=== PATIENT | female | born 1990 | race Caucasian/White ===

== ENCOUNTER 2024-09-15 17:51 | Emergency (ER) | payer BC, SELFPAY ==
[2024-09-15 17:52] VITALS: BP 138/82
[2024-09-15 18:31] VITALS: BMI 30.9
[2024-09-15] MEDS: TORADOL 30 MG IV (18:43)
[2024-09-15 18:46] LABS: % Basophils 0.7 % (0-2); % Eosinophils 1.8 % (0-6); % Immature Granulocytes 0.3 % (0-0.5); % Lymphocytes 25.8 % (20.5-51.1); % Neutrophils 63.4 % (42.2-75.2); Absolute Basophils 0.1 10^3/uL (0-0.2); Absolute Eosinophils 0.1 10^3/uL (0-0.7); Absolute Lymphocytes 1.9 10^3/uL (1.2-3.4); Absolute Monocytes 0.6 10^3/uL (0.1-0.6); Absolute Neutrophils 4.6 10^3/uL (1.4-6.5); Hematocrit 42.1 % (37.0-47.0); Hemoglobin 14.2 g/dL (12.0-16.0); Mean Corp Hgb Conc. 33.7 g/dL (33.0-37.0); Mean Corpuscular Hgb 29.3 pg (27.0-31.0); Mean Corpuscular Volume 86.8 fL (81.0-99.0); Mean Platelet Volume 10.6 fL (7.4-10.4); Nucleated Red Blood Cells % 0 %; Platelet Count 223 10^3/uL (130-400); Red Blood Cell Count 4.85 10^6/uL (4.20-5.40); Red Cell Dist. Width 12.1 % (11.5-14.5); White Blood Cell Count 7.3 10^3/uL (4.8-10.8)
--- NOTE | 2024-09-15 18:46 | ED.GENMED ---
History of Present Illness
General
Chief Complaint: Abdominal Pain
Source: patient
Exam Limitations: none
Time Seen by Provider: 09/15/24 18:08
Nursing documentation reviewed up to this point in time: agreed with
History of Present Illness
History of Present Illness:
pt is a 34 y/o F with h/o ovarian cyst in the past
Says that 3 days ago she had a nausea vomiting diarrhea illness that lasted about 12 hours. She vomited and had diarrhea every 30 minutes for about 6 hours. Subsequent to that she has no longer had vomiting and diarrhea but does not really have an
appetite. She had a low-grade temperature during that illness of 99-100. She has not felt feverish since. Patient says that she noticed that after the illness subsided that she started having left lower quadrant pain. Initially the pain was mild
and now it is more significant, constant and hurts worse with bending over and riding in a vehicle. Patient says she could feel the bumps in the car. She has never had a colonoscopy, history of diverticulitis but does have a family history of
diverticulosis. She has had a history of in the remote past. Patient has had an ovarian cyst previously on the right side but says she is not quite sure the pain feels similar. She has an IUD and does not get an menstrual cycle.
Patient did take a test which was negative. She went to urgent care and was sent here for imaging.
Past History
Past History
ED Past Medical History: None
ED Past Surgical History:
Social History
Tobacco: Non-smoker
Alcohol: None
Drug: None
Personal: Single
Employment: Employed
Family History
Family History: Other
Review of Systems
Review of Systems
Allergies reviewed?: Yes
All Other Systems: Not applicable
Phy Exam
Physical Exam
Physical Exam:
GENERAL: Alert , in no apparent distress
EYE: pupils equal and reactive
NECK: Supple
ENT: o/p clr, mmm.
CARDIAC: Regular rate and rhythm .
LUNGS: Clear breath sounds bilaterally, no acute respiratory distress, no wheezes/rales/rhonchi
ABDOMEN: Soft, mild left lower quad tendenress, no r/g, no cvat, normal bowel sounds
NEUROLOGICAL: Alert and oriented, no focal neuro deficits
SKIN: Warm and dry, skin intact.
MUSCULOSKELETAL: No edema, well perfused.
PSYCH: Normal and appropriate interaction.
Course
Orders/Labs/Results
Orders:
Orders
09/15/24 18:32
CT Abd/Pel (IV only)-[facility] only Urgent
Comment:
Reason For Exam: LLQ pain after GI virus 3 days ago
Test Result ONCE
09/15/24 18:36
Complete Blood Count/With Diff Urgent
Comprehensive Metabolic Panel Urgent
HCG, Serum Qualitative Screen Urgent
Lipase Urgent
09/15/24 18:40
Ketorolac [Toradol] 30 mg IV NOW STA
09/15/24 19:49
Urinalysis Reflex To Culture Urgent
Date Specimen was Collected: 09/15/24
Time Specimen was Collected: 19:48
Abnormal Lab Results
09/15/24
18:36
MPV 10.6 H fL
(7.4-10.4)
Alkaline Phosphatase 26 L U/L
(38-126)
09/15/24 18:36
09/15/24 18:36
Vital Signs
Initial and Last Documented VS:
Initial Vital Signs
Temp Pulse Resp BP Pulse Ox
37.3 C 91 16 138/82 100
09/15/24 17:52 09/15/24 17:52 09/15/24 17:52 09/15/24 17:52 09/15/24 17:52
Last Documented Vital Signs
Temp Pulse Resp BP Pulse Ox
37.3 C 91 16 119/87 99
09/15/24 17:52 09/15/24 17:52 09/15/24 17:52 09/15/24 21:06 09/15/24 20:01
MDM/Problems Addressed
Differential Diagnosis Includes:
ovarian cyst, diveriticlutis, colitis
MDM/Problems Addressed:
34 y/o F
h/o previous ovarian cyst
here with LLQ pain after having N/V/D earlier this week
pt says she doesn' thve appetite; bumps in the car are painful today
worse with movement
went to and sent here
no fever/chills, vomitig, diarrhea, vaginal bleeding, urinary syptmoms
on exam she has some tenderness LLQ/L pelvis regoin
no rebound
labs reassuring
ctap shows findings of possible complex cyst in the myometrium vs fibroid in uterus an dd a 3x 4 x3m L ovarian cyst
noted that torsion not r/o on CT but the ovary itself does not appear edematous which with days of symptoms should be the case with torsion
and pt's pain i smuch better after toradol
no divetic
pt feels comfortable going home at this point;
i am very reassured by her exam that this patient does not have torsion; however, US was offered
*Critical Care Note
Total Time (30-74mins, 75-104mins- exclusive of procedures): Not Applicable
ED Attending Note
-
Portions of this chart may have been created with voice recognition software.� Occasional wrong word or��sound alike� substitutions may have occurred due to the inherent limitations of voice recognition software.
Discharge Plan
Departure
Patient Disposition: Home (Routine Discharge)
Date of Disposition: 09/15/24
Time of Disposition: 21:08
Patient with high blood pressure during this ER visit?: No
Condition: Fair
Covid-19: Not Applicable
Discharge Problem:
Ovarian cyst
Instructions: Ovarian Cyst (DC)
Prescriptions:
No Action
Vitamin Tablet
1 tab PO DAILY
oxycodone-acetaminophen 5-325 mg Tablet
2 tab PO Q4HPRN PRN (Reason: severe pain) Qty: 30 0RF
ibuprofen 600 mg Tablet
600 mg PO Q4HPRN PRN (Reason: cramps) Qty: 30 0RF
clopidogrel [Plavix] 75 mg tablet
75 mg PO DAILY Qty: 21 0RF
aspirin 81 mg tablet,chewable
81 mg PO DAILY Qty: 30 0RF
Referrals:
Aileen Larios MD [Active] - Follow up in 5-7 days ([employer])
NONE,* [Family Provider] -
Activity Restrictions/Additional Instructions:
YOUR PAIN IS LIKELY DUE TO OVARIAN CYST
YOU ALSO HAVE A COMPLEX CYST IN YOUR UTERUS THAT NEEDS TO BE FOLLOWED UP
CALL YOUR DOCTOR AND OB/GYNE FOR FOLLOW UP
MOTRIN AND TYLENOL FOR PAIN
HEAT OFF AND ON
RETURN FOR: SUDDEN ONSET OF SEVERE PAIN, FEVER, VOMITING OR ANY CONCERNS
Interventions
Interventions:
*Risk Screen - Suicide Last Done: 09/15/24 17:52
*General Assessment Last Done: 09/15/24 17:52
*Neglect/Abuse Screening Last Done: 09/15/24 17:52
ED- Fall Risk Assessment Last Done: 09/15/24 18:31
*ED COVID-19 Vaccine History Last Done: 09/15/24 17:52
*Nursing Disposition Last Done: 09/15/24 21:18
UP-Suqljv-Lyosvtbfmg Assessment Last Done: 09/15/24 18:33
Discharge Date and Time
Discharge Date/Time: 09/15/24 21:19
Print Language: ALBANIAN
[2024-09-15 18:52] VITALS: BP 121/84
[2024-09-15 18:57] LABS: HCG, Serum Qualitative Screen Negative
[2024-09-15 19:00] VITALS: BP 122/84
[2024-09-15 19:00] LABS: ALT (SGPT) 26 U/L (0-35); AST (SGOT) 27 U/L (14-36); Albumin 4.7 g/dl (3.5-5.0); Alkaline Phosphatase 26 U/L (38-126); Blood Urea Nitrogen 11 mg/dl (7-17); Calcium 9.4 mg/dl (8.4-10.2); Carbon Dioxide 27 mmol/L (22-30); Chloride 103 mmol/L (98-107); Estimated Creatinine Clearance > 125 ml/min; Glucose 91 mg/dl (70-99); Lipase 116 U/L (23-300); Sodium 140 mmol/L (135-145); Total Bilirubin 0.7 mg/dl (0.2-1.3); Total Protein 7.1 g/dl (6.3-8.2); eGFR > 60.00
[2024-09-15 19:54] LABS: Urine Albumin Negative (Neg - Trace); Urine Bilirubin Negative (Negative); Urine Character Clear (Clear); Urine Color Yellow; Urine Glucose Negative (Negative); Urine Ketone Negative (Negative); Urine Leukocyte Negative (Negative); Urine Nitrite Negative (Negative); Urine Occult Blood Negative (Negative); Urine Urobilinogen Negative (Neg - 1+)
[2024-09-15 20:00] VITALS: BP 112/74
[2024-09-15 21:06] VITALS: BP 119/87
== END 2024-09-15 21:19 | disposition home or self-care (01) ==
LOC: EMR 17:51
PROVIDERS: Physician Assistant; EMERGENCY PHYSICIAN Emergency Medicine
DX: N83.202 Unspecified ovarian cyst, left side (principal)
CPT/HCPCS: 99284; 96374; 74177; 80053; 81003; 83690; 84703; 85025; Q9967

== ENCOUNTER → 2024-09-30 17:25 | Outpatient (REF) | payer BC, SELFPAY | LOC: MRI 17:25 | PROVIDERS: ATTENDING PHYSICIAN Obstetrics & Gynecology Gynecology; FAMILY PHYSICIAN Family Medicine | DX: Z87.448 Personal history of other diseases of urinary system (principal); Z98.890 Other specified postprocedural states; Z97.5 Presence of (intrauterine) contraceptive device; N94.89 Other specified conditions associated with female genital organs and menstrual cycle; N83.209 Unspecified ovarian cyst, unspecified side | CPT/HCPCS: 72197; A9575 ==

== ENCOUNTER → 2024-11-18 14:03 | Outpatient (REF) | payer BC, SELFPAY | LOC: RAD 14:03 | PROVIDERS: ATTENDING PHYSICIAN Nurse Practitioner Family; FAMILY PHYSICIAN Family Medicine | DX: R10.2 Pelvic and perineal pain (principal); Z30.431 Encounter for routine checking of intrauterine contraceptive device | CPT/HCPCS: 76830; 76856 ==

== ENCOUNTER → 2025-01-07 16:17 | Outpatient (REF) | payer BC, SELFPAY | LOC: RAD 16:17 | PROVIDERS: ATTENDING PHYSICIAN Nurse Practitioner Family; FAMILY PHYSICIAN Family Medicine | DX: R10.2 Pelvic and perineal pain (principal); Z30.431 Encounter for routine checking of intrauterine contraceptive device | CPT/HCPCS: 76830; 76856 ==